=== PATIENT | male | born 1945 | race Hispanic/Latino ===

== ENCOUNTER 2017-09-21 15:50 | Observation (INO) | payer MEDICARE ==
[~2017-09-21] VITALS: Ht 160 cm; Wt 92.5 kg
[~2017-09-21 15:50] MED LIST: ASPIR 8181 MG PO; COMBIGAN EYE DRO5 ML OU; CRESTOR20 MG PO; GEMFIBROZIL600 MG PO; GLUCOTROL10 MG PO; LANTUS100 UNITS/ SQ; PRINIVIL10 MG PO; PROTONIX IV40 MG; PROTONIX PO; VICTOZA 2-0.6 MG/0.1 SQ
[2017-09-21 17:02] LABS: BASOPHILS # (AUTO) 0.1 (0.0-0.1); BASOPHILS % 1.1 % (0.0-1.0); EOSINOPHILS # (AUTO) 0.1 (0.0-0.4); EOSINOPHILS % 1.4 % (0.0-6.0); HEMATOCRIT 39.4 % (38.2-49.6); HEMOGLOBIN 13.4 g/dL (14.0-18.0); LYMPHOCYTES # (AUTO) 2.3 (1.0-3.2); LYMPHOCYTES % 31.4 % (18.0-39.1); MEAN CORPUSCULAR HEMOGLOBIN 30.6 pg (28-32); MONOCYTES # (AUTO) 0.6 (0.2-0.8); MONOCYTES % 8.2 % (4.4-11.3); NEUTROPHILS # (AUTO) 4.2 (2.1-6.9); NEUTROPHILS % 57.6 % (38.7-80.0); PLATELET COUNT 369 x10e3/uL (140-360); RED BLOOD COUNT 4.38 x10e6/uL (4.3-5.7); RED CELL DISTRIBUTION WIDTH 12.2 % (11.7-14.4)
[2017-09-21 17:06] LABS: CLARITY,URINE SL CLOUDY (CLEAR); COLOR,URINE YELLOW (YELLOW)
[2017-09-21 17:07] LABS: BILIRUBIN,URINE NEGATIVE (NEGATIVE); KETONES,URINE NEGATIVE (NEGATIVE); LEUKOCYTE ESTERASE ,URINE NEGATIVE (NEGATIVE); NITRITE,URINE NEGATIVE (NEGATIVE); PROTEIN,URINE DIPSTICK 1+ (NEGATIVE); URINE UROBILINOGEN 0.2 mg/dL (0.2 - 1)
[2017-09-21 17:19] LABS: ALBUMIN 3.8 g/dL (3.5-5.0); ALBUMIN/GLOBULIN RATIO 0.8 (0.8-2.0); ANION GAP 13.1 mmol/L (8-16); CALCIUM 9.8 mg/dL (8.4-10.2); CREATININE, SERUM 1.71 mg/dL (0.72-1.25); POTASSIUM 4.1 mmol/L (3.5-5.1)
[2017-09-21 17:21] LABS: BACTERIA,URINE FEW /HPF; EPITHELIAL CELLS,URINE RARE /LPF; RBC,URINE 0-5 /HPF (0-5)
[2017-09-21] MEDS ORDERED: INSULIN REGULAR, HUMAN 100 UNIT/1 ML 3ML VIAL IV ONE (18:45)
[2017-09-21] MEDS ORDERED: HYDRALAZINE HCL 20 MG/ML VIAL IV ONE (18:45)
[2017-09-21] MEDS ORDERED: SODIUM CHLORIDE 0.9% 1000ML 1,000 ML IV ONE (18:45)
--- NOTE | 2017-09-21 20:08 | Diagnostic Imaging Report ---
EXAMINATION: CHEST SINGLE (PORTABLE) INDICATION: Confusion COMPARISON: 09/17/2013 FINDINGS: TUBES and LINES: None. LUNGS: The lungs are hypoinflated . Perihilar peribronchial hazy opacity could be due to bronchitis There is no evidence of pneumonia or pulmonary edema. PLEURA: No pleural effusion or pneumothorax. HEART AND MEDIASTINUM: The cardiomediastinal silhouette is unremarkable. BONES AND SOFT TISSUES: No acute osseous lesion. Soft tissues are unremarkable. UPPER ABDOMEN: No free air under the diaphragm. IMPRESSION: Findings which could be due to bronchitis. Signed by: Dr. Michael Au M.D. on 09/21/2017 8:05 PM
--- NOTE | 2017-09-21 20:34 | Diagnostic Imaging Report ---
EXAMINATION: Head CT without contrast. HISTORY:Confusion and slurred speech. COMPARISON:None. TECHNIQUE: Multidetector axial images were obtained from the foramen magnum to the vertex without contrast. The images were reconstructed using brain and bone algorithms. Thin section brain images were reformatted into coronal and sagittal planes. Intravenous contrast: None IMAGE QUALITY: Acceptable. FINDINGS: Skull/scalp: No lytic or blastic. lesions. No surgical changes. Parenchyma: Nonspecific few, scattered supratentorial white matter hypodensity are likely related to small vessel ischemic changes. No acute hemorrhage, mass or acute major vascular territorial infarct. Arteries: No density suggestive of thrombosis. Dural sinuses: No abnormal density suggestive of thrombosis. Ventricles: Mild compensated dilatation due to volume loss. No hydrocephalus. Extra-axial spaces: No abnormal density. Brain volume: Mild generalized age-related cerebral volume loss. Craniocervical junction: No mass, Chiari malformation, or basilar invagination. Sella: No mass. Paranasal/mastoid sinuses: Imaged portions unremarkable. IMPRESSION: No acute intracranial abnormality. Mild generalized cerebral volume loss and mild supratentorial white matter microvascular ischemic changes. Signed by: Dr. Ana Talavera M.D. on 09/21/2017 8:30 PM
[2017-09-21] MEDS ORDERED: ONDANSETRON HCL INJ 2 MG/ML VIAL IV PRN (21:15)
[2017-09-21] MEDS ORDERED: DEXTROSE 50% SYRINGE 50 ML IV PRN (21:15)
[2017-09-21] MEDS ORDERED: ASPIRIN 81 MG CHEW TAB PO ONE (21:15)
[2017-09-21 22:02] LABS: CREATINE KINASE MB 2.4 ng/mL (0-5.0)
[2017-09-21] MEDS ORDERED: METOPROLOL TARTRATE INJ 1 MG/ML VIAL IV ONE (22:15)
[2017-09-21] MEDS: SODIUM CHLORIDE 0.9% 1000ML 1,000 ML IV SCH (22:36)
[2017-09-21] MEDS ORDERED: HUMALOG MI100 UNIT/2 (22:50)
[2017-09-21] MEDS ORDERED: FINASTERIDE5 MG (22:50)
[2017-09-21] MEDS ORDERED: FLOMAX0.4 MG PO (22:50)
[2017-09-21] MEDS ORDERED: LISINOPRIL10 MG (22:50)
[2017-09-21] MEDS ORDERED: PANTOPRAZOLE SO40 MG (22:50)
[2017-09-21] MEDS ORDERED: METFORMIN HCL500 MG PO (22:50)
[2017-09-21] MEDS ORDERED: CRESTOR10 MG (22:50)
[2017-09-21 23:35] VITALS: BP 150/70
[2017-09-22] VITALS (10 sets, daily range): BP systolic 144–187; BP diastolic 66–88
[2017-09-22 05:11] LABS: BASOPHILS # (AUTO) 0.1 (0.0-0.1); BASOPHILS % 0.9 % (0.0-1.0); EOSINOPHILS # (AUTO) 0.2 (0.0-0.4); EOSINOPHILS % 2.6 % (0.0-6.0); HEMATOCRIT 36.1 % (38.2-49.6); HEMOGLOBIN 12.4 g/dL (14.0-18.0); LYMPHOCYTES # (AUTO) 3.4 (1.0-3.2); LYMPHOCYTES % 37.6 % (18.0-39.1); MEAN CORPUSCULAR HEMOGLOBIN 30.8 pg (28-32); MEAN CORPUSCULAR HGB CONC 34.3 g/dL (31-35); MEAN CORPUSCULAR VOLUME 89.6 fL (81-99); MONOCYTES # (AUTO) 0.6 (0.2-0.8); MONOCYTES % 7.1 % (4.4-11.3); NEUTROPHILS # (AUTO) 4.7 (2.1-6.9); NEUTROPHILS % 51.6 % (38.7-80.0); PLATELET COUNT 327 x10e3/uL (140-360); RED BLOOD COUNT 4.03 x10e6/uL (4.3-5.7); RED CELL DISTRIBUTION WIDTH 12.2 % (11.7-14.4)
[2017-09-22 05:37] LABS: CREATINE KINASE MB 1.7 ng/mL (0-5.0)
[2017-09-22 05:53] LABS: ALBUMIN 3.3 g/dL (3.5-5.0); ALBUMIN/GLOBULIN RATIO 0.9 (0.8-2.0); ANION GAP 13.7 mmol/L (8-16); CALCIUM 9.1 mg/dL (8.4-10.2); CREATININE, SERUM 1.34 mg/dL (0.72-1.25); POTASSIUM 3.7 mmol/L (3.5-5.1)
[2017-09-22] MEDS: SODIUM CHLORIDE 0.9% 1000ML 1,000 ML IV SCH (06:31)
[2017-09-22] MEDS: ASPIRIN 81 MG CHEW TAB PO SCH (07:45)
[2017-09-22] MEDS: INSULIN REGULAR, HUMAN 100 UNIT/1 ML 3ML VIAL SQ SCH ×4 (07:56→21:17)
[2017-09-22] MEDS ORDERED: HYDRALAZINE HCL 20 MG/ML VIAL IV PRN (10:15)
[2017-09-22] MEDS ORDERED: ENALAPRILAT IV INJ 1.25 MG/ML VIAL IV PRN (11:00)
[2017-09-22] MEDS ORDERED: LABETALOL HCL 5 MG/ML 20ML VIAL IV PRN (11:15)
[2017-09-22] MEDS ORDERED: LORAZEPAM INJ 2 MG/ML VIAL IV ONE (13:15)
[2017-09-22 14:17] LABS: CREATINE KINASE MB 1.6 ng/mL (0-5.0)
--- NOTE | 2017-09-22 15:53 | Diagnostic Imaging Report ---
History: Confused for 2 days Comparison studies: CT head 09/21/2017 Technique: Sagittal T2; axial DWI, FLAIR, MPGR, T1, Coronal FLAIR. Intravenous contrast: None Findings: Scalp: Normal in signal . No masses . Bone marrow: Normal in signal intensity. Extra-axial: No masses, no fluid collections. Brain sulci: Appropriate for age. Ventricles: Normal in size . No hydrocephalus . Parenchyma: Few small T-2/flair hyperintensities of the periventricular and the white matter, nonspecific and most commonly seen with mild chronic microvascular ischemic changes No masses, hemorrhage, acute or chronic vascular insults. Suprasellar region: No abnormalities. Craniocervical junction: No abnormalities. Patent foramen magnum. No Chiari one malformation. Vessels: Normal flow-voids in the arteries and sinuses. IMPRESSION: 1. No acute abnormalities. 2. Mild chronic microvascular ischemic changes of the white matter . Signed by: DR Orlando Foster M.D. on 09/22/2017 3:49 PM
[2017-09-22] MEDS: CARVEDILOL 3.125 MG TAB PO SCH (17:47)
[2017-09-22] MEDS: METFORMIN HCL 500 MG TAB PO SCH (17:47)
[2017-09-22] MEDS ORDERED: SIMVASTATIN 20 MG TAB PO SCH (21:00)
[2017-09-22] MEDS ORDERED: TAMSULOSIN HCL 0.4 MG CAP PO SCH (21:00)
[2017-09-23 01:20] VITALS: BP 130/61
[2017-09-23 05:48] LABS: BASOPHILS # (AUTO) 0.1 (0.0-0.1); BASOPHILS % 0.8 % (0.0-1.0); EOSINOPHILS # (AUTO) 0.1 (0.0-0.4); EOSINOPHILS % 1.8 % (0.0-6.0); HEMATOCRIT 35.2 % (38.2-49.6); HEMOGLOBIN 11.8 g/dL (14.0-18.0); LYMPHOCYTES % 37.9 % (18.0-39.1); MEAN CORPUSCULAR HEMOGLOBIN 30.6 pg (28-32); MEAN CORPUSCULAR HGB CONC 33.5 g/dL (31-35); MEAN CORPUSCULAR VOLUME 91.2 fL (81-99); MONOCYTES # (AUTO) 0.6 (0.2-0.8); MONOCYTES % 7.2 % (4.4-11.3); NEUTROPHILS # (AUTO) 4.1 (2.1-6.9); PLATELET COUNT 287 x10e3/uL (140-360); RED BLOOD COUNT 3.86 x10e6/uL (4.3-5.7); RED CELL DISTRIBUTION WIDTH 12.4 % (11.7-14.4)
[2017-09-23 05:50] VITALS: BP 153/66
[2017-09-23 06:29] LABS: ANION GAP 12.9 mmol/L (8-16); CREATININE, SERUM 1.53 mg/dL (0.72-1.25); POTASSIUM 3.9 mmol/L (3.5-5.1)
[2017-09-23] MEDS: INSULIN REGULAR, HUMAN 100 UNIT/1 ML 3ML VIAL SQ SCH (08:18)
[2017-09-23] MEDS: METFORMIN HCL 500 MG TAB PO SCH (08:18)
[2017-09-23 08:29] VITALS: BP 138/66
[2017-09-23] MEDS: CARVEDILOL 3.125 MG TAB PO SCH (09:25)
[2017-09-23] MEDS: ASPIRIN 81 MG CHEW TAB PO SCH (09:25)
[2017-09-23] MEDS ORDERED: COREG3.125 MG PO (10:05)
[2017-09-23] MEDS ORDERED: ULTRAM50 MG PO (10:06)
--- NOTE | 2017-09-23 10:12 | Discharge Summary ---
FINAL DIAGNOSIS: Hypertensive emergency. SECONDARY DIAGNOSES 1. Hyponatremia, resolved. 2. Chronic kidney disease, stage 3, due to diabetes. 3. Uncontrolled diabetes, partially due to steroids. 4. Bronchitis, resolving. PROCEDURES/STUDIES PERFORMED: MRI of the brain did not show any acute disease. CONSULTANTS: None. HISTORY: Per H\T\P. HOSPITAL COURSE: Patient came in with likely hypertensive encephalopathy, likely due to a combination of NSAIDs, mild renal insufficiency, steroids, and sciatica pain. Once we slowly brought down his blood pressure, patient was no longer altered. MRI of the brain was reassuring. Since his creatinine is pretty much stable at 7.5, patient may resume his lisinopril. I would also add a low-dose Coreg. As far as pain goes, I have given him a prescription for tramadol as needed. Patient was seen and examined today, updated the son at the bedside today. CONDITION ON DISCHARGE: Stable. DISCHARGE MEDICATIONS: Please see medication reconciliation form. GWENDOLYN SLOAN M.D. Job#: [id number] TA cc:MARGIE DAVILA MD
[2017-09-23 10:35] VITALS: BP 138/66
== END 2017-09-23 10:40 | disposition home or self-care (01) ==
LOC: ER 15:50 → ERHOLD 21:04 → IMCU 23:50
PROVIDERS: ADMIT Internal Medicine; ATTEND Internal Medicine
DX: I16.1 Hypertensive emergency (principal); R53.83 Other fatigue; E87.1 Hypo-osmolality and hyponatremia; E11.22 Type 2 diabetes mellitus with diabetic chronic kidney disease; E11.65 Type 2 diabetes mellitus with hyperglycemia; N18.3 Chronic kidney disease, stage 3 (moderate); N17.9 Acute kidney failure, unspecified; J40 Bronchitis, not specified as acute or chronic; M54.30 Sciatica, unspecified side; T38.0X5A Adverse effect of glucocorticoids and synthetic analogues, initial encounter
CPT/HCPCS: 36415 ×3; 70450; 70551; 71045; 80048; 80053 ×2; 81001; 82550 ×2; 82553 ×2; 82948 ×3; 84484 ×2; 85025 ×3; 86140; 99284; G0378 ×3; J0360 ×2; J2060; J2405; J3490; J7030 ×2